=== PATIENT | female | born 1955 | race Caucasian/White ===

== ENCOUNTER 2017-08-05 14:40 | Emergency (ER) | payer OTHER ==
[2017-08-05] MEDS: ACETAMINOPHEN 325 MG TAB PO (15:49)
== END 2017-08-05 18:59 | disposition home or self-care (01) ==
LOC: FTE 14:40
DX: M25.571 Pain in right ankle and joints of right foot (principal); I10 Essential (primary) hypertension; E11.9 Type 2 diabetes mellitus without complications
CPT/HCPCS: 71045; 73590; 93005; 99284-25